=== PATIENT | female | born 1995 | race African-American/Black ===

== ENCOUNTER 2019-09-26 22:58 | Emergency (ER) | payer OTHER ==
[~2019-09-26] VITALS: Ht 175.3 cm; Wt 113.4 kg
[2019-09-26 23:12] VITALS: BP 127/71
--- NOTE | 2019-09-28 13:57 | EKG ---
[place] [address] ELECTROCARDIOGRAM REPORT Name: BECKA NAVARRO Room: 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
== END 2019-09-26 23:40 | disposition home or self-care (01) ==
LOC: M.ERS 22:58
DX: R07.89 Other chest pain (principal)

== ENCOUNTER 2019-09-28 14:10 | Emergency (ER) | payer OTHER ==
[~2019-09-28] VITALS: Ht 175.3 cm; Wt 112.0 kg
[2019-09-28 14:39] LABS: HEMATOCRIT 34.8 % (37.0-47.0); HEMOGLOBIN 11.1 gm/dL (12.0-15.0); MCH 22.5 pg (26.0-34.0); MCHC 31.9 g/dL (28.0-37.0); MCV 70.5 fL (80.0-100.0); RBC 4.94 mil/uL (4.20-5.00); RDW-CV 17.1 % (10.5-14.5); WBC 9.2 thou/uL (4.0-11.0)
[2019-09-28 14:47] LABS: URINE BILIRUBIN NEGATIVE (Negative); URINE BLOOD NEGATIVE (Negative); URINE CLARITY SL CLOUDY; URINE COLOR YELLOW; URINE GLUCOSE-RANDOM NEGATIVE (Negative); URINE KETONES 1+ (Negative); URINE LEUKOCYTES-REFLEX TRACE (Negative); URINE NITRITE-REFLEX NEGATIVE (Negative); URINE PROTEIN NEGATIVE (Negative); URINE SPECIFIC GRAVITY 1.025 (1.005-1.030)
[2019-09-28 14:51] LABS: CALCIUM 8.7 mg/dL (8.5-10.1); CREATININE 1.2 mg/dL (0.6-1.3); POTASSIUM 4.3 mmol/L (3.5-5.1)
[2019-09-28 14:53] LABS: SQUAMOUS >10 Many /LPF (0-3)
[2019-09-28 14:54] LABS: BACTERIA-REFLEX >30 Many /HPF (None Seen); URINE RBC None Seen /HPF (0-2); URINE WBC-REFLEX 0-5 Rare /HPF (0-5)
[2019-09-28 14:55] LABS: ALBUMIN 3.6 g/dL (3.4-5.0); TOTAL BILIRUBIN 0.3 mg/dL (<0.1-1.0); TOTAL PROTEIN 8.6 g/dL (6.4-8.2)
[2019-09-28 14:55] LABS: CASTS None Seen /LPF (None Seen); CRYSTALS None Seen /LPF (None Seen); MUCUS 0-3 Light strn/LPF (None Seen)
[2019-09-28] MEDS ORDERED: CARAFATE 1 GM TA1 G1 PO (15:19)
[2019-09-28] MEDS ORDERED: MOBIC15 MG PO (15:19)
[2019-09-28 15:56] VITALS: BP 91/56
--- NOTE | 2019-09-28 16:43 | EKG ---
[place] [address] ELECTROCARDIOGRAM REPORT Name: BECKA NAVARRO [facility] [id number] Admission: 09/28/19 Attend Phys: Discharge: 09/28/19 Date of : [birth year] Date of Service: 09/28/19 1413 Report #: [id number] THIS REPORT FOR: cc: KARIE - No family physician/PCP FAM - No family physician/PCP Ellis Jean MD 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
== END 2019-09-28 15:57 | disposition home or self-care (01) ==
LOC: M.ERS 14:10
PROVIDERS: Personal Emergency Response Attendant
DX: R07.89 Other chest pain (principal); R11.2 Nausea with vomiting, unspecified; Z90.49 Acquired absence of other specified parts of digestive tract